=== PATIENT | female | born 1955 | race Caucasian/White ===

== ENCOUNTER → 2024-09-11 06:32 | Outpatient (REF) | payer MEDICARE, SELFPAY | LOC: HWWDC 06:32 | PROVIDERS: ATTENDING PHYSICIAN Nurse Practitioner Family | DX: Z12.31 Encounter for screening mammogram for malignant neoplasm of breast (principal) | CPT/HCPCS: 77063; 77067 ==

== ENCOUNTER → 2025-03-03 10:52 | Outpatient (REF) | payer OTHER, SELFPAY | LOC: HWRAD 10:52 | PROVIDERS: ATTENDING PHYSICIAN Nurse Practitioner Family | DX: Z78.0 Asymptomatic menopausal state (principal) | CPT/HCPCS: 77080 ==

== ENCOUNTER → 2025-08-25 10:06 | Outpatient (REF) | payer OTHER, SELFPAY | LOC: HWRAD 10:06 | PROVIDERS: ATTENDING PHYSICIAN Nurse Practitioner Family | DX: R06.09 Other forms of dyspnea (principal) | CPT/HCPCS: 71046 ==

== ENCOUNTER → 2025-10-27 06:29 | Outpatient (REF) | payer OTHER, SELFPAY | LOC: HWWDC 06:29 | PROVIDERS: ATTENDING PHYSICIAN Nurse Practitioner Family | DX: Z12.31 Encounter for screening mammogram for malignant neoplasm of breast (principal) | CPT/HCPCS: 77063; 77067 ==

== ENCOUNTER → 2025-11-04 10:09 | Outpatient (REF) | payer OTHER, SELFPAY | LOC: WDC 10:09 | PROVIDERS: ATTENDING PHYSICIAN Nurse Practitioner Family | DX: R92.8 Other abnormal and inconclusive findings on diagnostic imaging of breast (principal) | CPT/HCPCS: 76642 ==